=== PATIENT | male | born 1995 | race Caucasian/White ===

== ENCOUNTER → 2016-12-16 | Outpatient (CLI) | payer OTHER ==
--- NOTE | 2016-12-16 18:19 | REP ---
RIGHT HAND, FOUR VIEWS: HISTORY: Contusion. There is a nondisplaced fracture of the head of the 5th metacarpal. There is no dislocation. The joint spaces are normal in appearance. IMPRESSION: Nondisplaced fracture of the head of the 5th metacarpal. Signed by Morris Mendoza MD 12/16/2016 06:50 P
== END ==
LOC: M ADAMS 17:28
PROVIDERS: ATTEND Physician Assistant Medical
DX: S60.221A Contusion of right hand, initial encounter (principal); X58.XXXA Exposure to other specified factors, initial encounter; Y92.89 Other specified places as the place of occurrence of the external cause